=== PATIENT | female | born 1985 | race Two or more races ===

== ENCOUNTER 2023-06-28 20:31 | Emergency (ER) | payer OTHER, SELFPAY ==
[2023-06-28 20:36] VITALS: BP 105/65; PULSE 90; TEMP 37; O2SAT 100; BMI 16.5
--- NOTE | 2023-06-28 20:54 | XR_ITS ---
The [address] [address] Patient Name: TOMY AL MRN: [id number] date: 1985 Sex: F Assigned Patient Location: ER Current Patient Location: ED.MAIN Accession/Order Number: [id number] Exam Date: 06/28/2023 21:25 Report Date: 06/28/2023 21:59 At the request of: CRISTOPHER SCHULER Procedure: XR lumbar spine 2-3V EXAM: XR lumbar spine 2-3V HISTORY: right low back pain COMPARISON: None. TECHNIQUE: 3 views lumbar spine FINDINGS: There are 5 nonrib-bearing lumbar-type vertebral bodies. Vertebral body heights and alignment are preserved. Imaged sacroiliac joints appear intact. No significant degenerative disc height loss. XR/XR lumbar spine 2-3V IMPRESSION: No acute osseous abnormality of the lumbar spine. Electronically authenticated by: BERRY DACOSTA Date: 06/28/2023 21:59
--- NOTE | 2023-06-28 21:24 | ED_ITS ---
HPI HPI - Back Pain/Injury General Chief Complaint: Back Pain/Injury Stated Complaint: Back Pain Time Seen by Provider: 06/28/23 20:54 Source: patient Mode of arrival: ambulance Limitations: language barrier History of Present Illness HPI Narrative: 37-year-old female presents for right lower back pain. She was at work and was pulling on an item when she felt this pain. It does not go down her leg but it goes down into her buttock. She did not fall. No dysuria or hematuria. Paramedics reported an elevated blood sugar and she has no history of diabetes. No history of back issues. Related Data Previous Rx's ?Medication ?Instructions ?Recorded ibuprofen 800 mg tablet 800 mg PO Q8H PRN pain #20 tabs 06/28/23 methocarbamol 500 mg tablet 500 mg PO Q8H PRN pain #20 tabs 06/28/23 Allergies Allergy/AdvReac Type Severity Reaction Status Date / Time No Known Drug Allergies Allergy Verified 06/28/23 20:41 Opioid HPI Opioid Management Most Recent Opioid Data: Last Pain Scale 4 06/28/23 20:54 Last ED Pain Assessment 06/28/23 20:54 Review of Systems ROS Narrative A ten point review of systems is negative except as noted above. Exam Narrative Exam Narrative: Nurses note and vital signs reviewed and patient is not hypoxic. General: The patient appears well and in no apparent distress. Patient is resting comfortably on cart. Skin: Warm, dry, no pallor noted. There is no rash noted. Head: Normocephalic, atraumatic Eye: Normal conjunctiva, no drainage Ears, Nose, Mouth, and Throat: oral mucosa is moist. Nares patent. Cardiovascular: Regular Rate and Rhythm Respiratory: Patient is in no distress, no accessory muscle use, lungs are clear to auscultation, no wheezing, rales or rhonchi Back: No bruise or rash or abrasion. No CVA tenderness. No midline tenderness GI: Soft and nontender Musculoskeletal: The patient has no evidence of calf tenderness, no pitting edema, symmetrical pulses noted bilaterally Neurological: Awake and alert. 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 Psychiatric: Cooperative Constitutional Vital Signs, click to edit/add: Last Vital Signs Temp 98.6 F 06/28/23 20:36 Pulse 85 06/28/23 22:21 Resp 16 04/26/24 22:21 BP 102/62 06/28/23 22:21 Pulse Ox 99 06/28/23 22:21 O2 Del Method Room Air 06/28/23 22:21 Course Vital Signs Vital signs: Vital Signs Temperature 98.6 F 06/28/23 20:36 Pulse Rate 90 06/28/23 20:36 Respiratory Rate 16 06/28/23 20:36 Blood Pressure 105/65 06/28/23 20:36 Pulse Oximetry 100 06/28/23 20:36 Oxygen Delivery Method Room Air 06/28/23 20:36 Temperature 98.6 F 06/28/23 20:36 Pulse Rate 85 06/28/23 22:21 Respiratory Rate 16 06/28/23 22:21 Blood Pressure 102/62 06/28/23 22:21 Pulse Oximetry 99 06/28/23 22:21 Oxygen Delivery Method Room Air 06/28/23 22:21 MDM - Back Pain/Injury MDM Narrative Medical decision making narrative: Workup is negative including CAT scan. No evidence of kidney stone or UTI. My clinical impression at this point is that she has muscular pain and she will be treated symptomatically. Treatment diagnosis and follow-up were discussed with the patient. Differential Diagnosis Differential diagnosis: Likely other (Muscle strain, kidney stone, lumbar fracture) Lab Data Attestation: I reviewed the patient's lab results. Labs: Lab Results 06/28/23 06/28/23 Range/Units 20:45 22:10 WBC 9.4 (4.0-11.0) 10^3/uL RBC 3.55 L (4.20-5.40) 10^6/uL Hgb 10.4 L (12.0-16.0) g/dL Hct 32.0 L (36.0-48.0) % MCV 90.1 (81.0-99.0) fL MCH 29.3 (26.7-34.0) pg MCHC 32.5 (29.9-35.2) g/dL RDW 14.1 (11.0-15.0) % Plt Count 259 (150-450) 10^3/uL MPV 11.1 (9.5-13.5) fL Neut % (Auto) 74.1 (43.0-75.0) % Lymph % (Auto) 18.8 L (20.5-60.0) % [place] % (Auto) 5.7 (1.7-12.0) % Eos % (Auto) 0.8 L (0.9-7.0) % Baso % (Auto) 0.2 (0.2-2.0) % Neut # (Auto) 7.0 H (1.4-6.5) 10^3/uL Lymph # (Auto) 1.8 (1.2-3.8) 10^3/uL Louisa # (Auto) 0.5 (0.3-0.8) 10^3/uL Eos # (Auto) 0.1 (0.0-0.7) 10^3/uL Baso # (Auto) 0.0 (0.0-0.1) 10^3/uL Abs Immat Gran (auto) 0.04 H (0.00-0.03) 10^3/uL Imm/Tot Granulo (auto) 0.4 (0.0-0.5) % Sodium 140 (136-145) mmol/L Potassium 3.0 L (3.5-5.1) mmol/L Chloride 105 (98-107) mmol/L Carbon Dioxide 22.5 (21.0-32.0) mmol/L Anion Gap 15.5 BUN 12.0 (7.0-18.0) mg/dL Creatinine 0.78 (0.55-1.02) mg/dL Est GFR ( Amer) >60 (>=60) Est GFR (Non-Af Amer) >60 (>=60) BUN/Creatinine Ratio 15.4 Glucose 101 (74-106) mg/dL Calcium 8.2 L (8.5-10.1) mg/dL Serum HCG, Qual Negative (NEGATIVE) Urine Color Lt. yellow (YELLOW) Urine Clarity Clear (CLEAR) Urine pH 6.0 (5.0-9.0) Ur Specific [place] <=1.005 A (1.005-1.025) Urine Protein Negative (NEG/TRACE) mg/dL Urine Glucose (UA) Negative (NEGATIVE) mg/dL Urine Ketones Negative (NEGATIVE) mg/dL Urine Occult Blood Trace-i (NEGATIVE) Urine Nitrite Negative (NEGATIVE) Urine Bilirubin Negative (NEGATIVE) Urine Urobilinogen 0.2 (0.2-1.0) EU/dL Ur Leukocyte Esterase Negative (NEGATIVE) Urine RBC 0-2 (0-2) #/HPF Urine WBC 0-2 A (NONE SEEN) #/HPF Ur Squamous Epith Cells Few A (NONE/RARE) #/LPF Urine Crystals None seen (None Seen) #/HPF Urine Bacteria None seen (NONE SEEN) #/HPF Urine Casts None seen (NONE SEEN) #/LPF Urine Mucus None seen (NONE SEEN) Ur Culture Indicated? No Urine HCG, Qual Negative (NEGATIVE) Imaging Data CT scan - abdomen: Radiologist's impression: ITS Impressions Lumbar Spine X-Ray 06/28/23 20:54 IMPRESSION: No acute osseous abnormality of the lumbar spine. Electronically authenticated by: BERRY DACOSTA Date: 06/28/2023 21:59 Abdomen/Pelvis CT 06/28/23 22:14 IMPRESSION: 1. No acute process in the abdomen or pelvis. Electronically authenticated by: CHRISTIAN HOLLY Date: 06/28/2023 23:15 Discharge Plan Discharge Stand Alone Forms: Portal Instructions Chief Complaint: Back Pain/Injury Clinical Impression: Strain of lumbar region Patient Disposition: Home, Self-Care Time of Disposition Decision: 23:26 Condition: Good Mode of Transportation: Private Vehicle Prescriptions / Home Meds: New ibuprofen 800 mg tablet 800 mg PO Q8H PRN (Reason: pain) Qty: 20 0RF methocarbamol 500 mg tablet 500 mg PO Q8H PRN (Reason: pain) Qty: 20 0RF Print Language: German Instructions: Low Back Strain (ED) Referrals: Physician,Non-Staff, MD [Primary Care Provider] - 1 week
[2023-06-28 21:55] LABS: Basophils Percent Auto 0.2 % (0.2-2.0); Eosinophils Absolute Auto 0.1 10^3/uL (0.0-0.7); Eosinophils Percent Auto 0.8 % (0.9-7.0); Hemoglobin 10.4 g/dL (12.0-16.0); Immature Granulocytes Abs Auto 0.04 10^3/uL (0.00-0.03); Immature Granulocytes Pct Auto 0.4 % (0.0-0.5); Lymphocytes Absolute Auto 1.8 10^3/uL (1.2-3.8); Lymphocytes Percent Auto 18.8 % (20.5-60.0); Mean Corpuscular HGB Conc 32.5 g/dL (29.9-35.2); Mean Corpuscular Hemoglobin 29.3 pg (26.7-34.0); Mean Corpuscular Volume 90.1 fL (81.0-99.0); Mean Platelet Volume 11.1 fL (9.5-13.5); Monocytes Absolute Auto 0.5 10^3/uL (0.3-0.8); Monocytes Percent Auto 5.7 % (1.7-12.0); Neutrophils Percent Auto 74.1 % (43.0-75.0); Platelet Count 259 10^3/uL (150-450); Red Blood Count 3.55 10^6/uL (4.20-5.40); Red Cell Distribution Width 14.1 % (11.0-15.0); White Blood Count 9.4 10^3/uL (4.0-11.0)
[2023-06-28 22:06] LABS: Anion Gap 15.5; BUN Creatinine Ratio 15.4; Calcium 8.2 mg/dL (8.5-10.1); Carbon Dioxide 22.5 mmol/L (21.0-32.0); Chloride 105 mmol/L (98-107); Estimated GFR (African America >60 (>=60); Estimated GFR (Non-African Ame >60 (>=60); Glucose 101 mg/dL (74-106); Sodium 140 mmol/L (136-145)
[2023-06-28 22:11] LABS: HCG Qualitative NEGATIVE (NEGATIVE)
--- NOTE | 2023-06-28 22:14 | CT_ITS ---
The [address] [address] Patient Name: TOMY AL MRN: [id number] date: 1985 Sex: F Assigned Patient Location: ER Current Patient Location: ER Accession/Order Number: [id number] Exam Date: 06/28/2023 22:38 Report Date: 06/28/2023 23:15 At the request of: RAHEEM GRACE Procedure: CT abdomen pelvis wo con EXAMINATION:CT abdomen pelvis wo con INDICATION:Right flank pain, rule out kidney stone COMPARISON:None TECHNIQUE:Multiple thin section transaxial slices were acquired through the abdomen and pelvis without intravenous contrast. Coronal and sagittal reconstructed images were reviewed. Oral contrastWas not administered. FINDINGS: LOWER CHEST: The lower chest is unremarkable. LIVER: The liver is unremarkable. GALLBLADDER AND BILIARY SYSTEM: No obvious ductal dilation. The gallbladder is not well visualized and may be contracted. SPLEEN: The spleen is unremarkable. PANCREAS: The pancreas is unremarkable. ADRENAL GLANDS: The adrenal glands are unremarkable. KIDNEYS AND URETERS: There is no hydronephrosis of the kidneys.No obstructing urologic calcifications are present. VASCULATURE: Vascularity is unremarkable. PERITONEUM/RETROPERITONEUM: Peritoneum/retroperitoneum is unremarkable. LYMPH NODES: No suspicious lymphadenopathy. GASTROINTESTINAL TRACT: The bowel is normal in caliber.No acute inflammatory changes are present in the bowel. There is a large stool burden consistent with a clinical diagnosis of constipation.The appendix is visualized and is not inflamed. BLADDER: The urinary bladder is unremarkable. REPRODUCTIVE SYSTEM: Reproductive system is unremarkable. BODY WALL: Unremarkable. BONES: Osseous structures are unremarkable. CT/CT abdomen pelvis wo con IMPRESSION: 1. No acute process in the abdomen or pelvis. Electronically authenticated by: CHRISTIAN HOLLY Date: 06/28/2023 23:15
[2023-06-28 22:21] VITALS: BP 102/62; PULSE 85; O2SAT 99
[2023-06-28 22:28] LABS: Bilirubin Urine NEGATIVE (NEGATIVE); Blood Urine TRACE-I (NEGATIVE); Clarity Urine CLEAR (CLEAR); Color Urine LT. YELLOW (YELLOW); Glucose Urine UA NEGATIVE (NEGATIVE); Ketones Urine NEGATIVE (NEGATIVE); Leukocyte Esterase Urine NEGATIVE (NEGATIVE); Nitrite Urine NEGATIVE (NEGATIVE); Protein Urine NEGATIVE (NEG/TRACE); Specific Gravity Urine <=1.005 (1.005-1.025); Urobilinogen Urine 0.2 EU/dL (0.2-1.0)
[2023-06-28 22:29] LABS: HCG Qualitative Urine* NEGATIVE (NEGATIVE)
[2023-06-28 22:30] LABS: Urine Microscopic Indicated YES
[2023-06-28 22:44] LABS: Bacteria Urine NONE SEEN #/HPF (NONE SEEN); Cast Seen? NONE SEEN #/LPF (NONE SEEN); Crystals Seen? None Seen #/HPF (None Seen); Mucus Urine NONE SEEN (NONE SEEN); RBC Urine 0-2 #/HPF (0-2); Squamous Epithelial Cell Urine FEW #/LPF (NONE/RARE); Urine Culture Indicated NO; WBC Urine 0-2 #/HPF (NONE SEEN)
[2023-06-28 23:32] VITALS: BP 84/53; PULSE 68; TEMP 36.9; O2SAT 100
[2023-06-28] MEDS: METHOCARBAMOL 500 MG TABLET PO (23:42)
[2023-06-28] MEDS: IBUPROFEN 400 MG TABLET 800 MG PO (23:42)
== END 2023-06-28 23:45 | disposition home or self-care (01) ==
PROVIDERS: Personal Emergency Response Attendant; Emergency Provider Emergency Medicine
DX: S39.012A Strain of muscle, fascia and tendon of lower back, initial encounter (principal); X50.9XXA Other and unspecified overexertion or strenuous movements or postures, initial encounter
CPT/HCPCS: 36415; 72100; 74176; 80048; 81001; 84703; 85025; 99285